=== PATIENT | male | born 1990 | race Caucasian/White ===

== ENCOUNTER 2017-03-31 07:01 | Emergency (ER) | payer OTHER ==
--- NOTE | ~2017-03-31 | CR7 ---
[facility] A Service of [facility] RADIOLOGY TEXT RESULTS PATIENT: GABINO CAMARA JR LOCATION: SED : 89 UNIT #: [id number] AGE: [address]: Derek Sutton MD SEX: M ORDER DR: [id number] [address] [id number] [id number] MR#: [id number] Acc #: [id number] NAME: GABINO CAMARA : 1990 SEX: M STUDY DATE/TIME: 03/31/2017 7:54 UNIT: SED ROOM: STUDY DESCRIPTION: CR Abdomen Single AP View Attending Physician: Derek Sutton M.D. Ordering Physician: Derek Sutton M.D. MEDICAL IMAGING REPORT This report is preliminary unless electronic signature is present. EXAM Abdomen 03/31/2017 HISTORY 26-year-old male with right flank pain and hematuria beginning last night. COMPARISON STUDIES CT abdomen and pelvis 12/18/2016. Abdomen x-rays 12/21/2016. FINDINGS 2 frontal supine views of the abdomen demonstrate two 1 cm radiopaque densities projecting over the right renal collecting system and right renal pelvis/proximal right ureter. Findings appear most consistent with the patient's known urinary tract calculi. Bowel gas pattern is non-obstructive. No acute bony abnormality. IMPRESSION Two 1 cm calcifications projecting over the right renal collecting system and right renal pelvis/proximal right ureter. Findings consistent with patient's known right-sided urinary tract calculi. An obstructing proximal right ureteral stone not excluded. Dictated by... Eric Gonzalez M.D. THIS IS AN ELECTRONICALLY VERIFIED REPORT Eric Gonzalez M.D. at 04/01/2017 6:21 AM NADINE/marie TD: 03/31/2017 09:42 [facility] A Service of [facility] RADIOLOGY TEXT RESULTS PATIENT: GABINO CAMARA JR LOCATION: SED : 89 UNIT #: [id number] AGE: [address]: Derek Sutton MD SEX: M ORDER DR: JOB #: [id number] MEDICAL IMAGING REPORT Page 1 of 1
[~2017-03-31 07:01] MED LIST: ABILIFY30 MG; FLEXERIL10 MG PO; GRALISE1 EACH; LORTAB 7.5-3251 EACH; ORUDIS75 M1 DOB; PHENERGAN25 M1 DOB; TRAMADOL HCL50 M1 PO; ZOFRAN
[2017-03-31 07:32] LABS: URINE APPEARANCE CLEAR; URINE BILIRUBIN NEG (NEG); URINE BLOOD 3+ (NEG); URINE COLOR YELLOW; URINE GLUCOSE NEG (NORM); URINE KETONE NEG (NEG); URINE LEUKOCYTE ESTERASE NEG (NEG); URINE NITRATE NEG (NEG); URINE PROTEIN TRACE (NEG); URINE SPECIFIC GRAVITY >=1.030 (1.003-1.035); URINE UROBILINOGEN 0.2 MG/DL (NORM)
[2017-03-31 07:38] LABS: MICRO INDICATED? YES; URINE SOURCE CLEAN CATCH
[2017-03-31 07:39] LABS: CULTURE INDICATED? NO; URINE BACTERIA NEG (NEG); URINE MUCUS PRESENT; URINE RBC 25-50 /[HPF] (0-2); URINE SQUAMOUS EPITHELIAL CELL FEW /[HPF]; URINE WBC 0-2 /[HPF] (0-5)
[2017-03-31 07:45] LABS: BASOPHIL# 0.1 X10e3 (0-0.3); BASOPHIL% 1.5 % (0-2.5); EOSINOPHIL# 0.6 X10e3 (0-0.7); EOSINOPHIL% 6.2 % (0.0-7.0); HEMATOCRIT 45.5 % (38.0-50.0); HEMOGLOBIN 16.1 gm/dL (13.0-16.0); LYMPHOCYTE# 2.3 X10e3 (1.0-3.5); LYMPHOCYTE% 23.5 % (17.0-45.0); MEAN CELL VOLUME 86.5 FL (83-96); MEAN CORPUSCULAR HEMOGLOBIN 30.6 PG (28-34); MEAN CORPUSCULAR HGB CONC 35.4 g/dL (30-36); MEAN PLATELET VOLUME 9.3 FL (6.5-11.5); MONOCYTE# 0.8 X10e3 (0-1.0); NEUTROPHIL% 60.8 % (40-75); PLATELET COUNT 227 X10e3 (140-420); RED BLOOD COUNT 5.27 X10e (3.90-5.60); RED CELL DISTRIBUTION WIDTH 13.3 % (11.0-15.5); WHITE BLOOD COUNT 9.9 X10e3 (4.0-10.5)
[2017-03-31 07:51] LABS: DIFF IND NO
[2017-03-31 08:04] LABS: ALBUMIN SERUM 4.6 g/dL (3.5-5.0); BILIRUBIN,TOTAL 0.8 mg/dL (0.2-2.0); CALCIUM SERUM 8.7 mg/dL (8.4-10.2); GLOM FILT RATE Estimated 102.7 mL/min (>60); POTASSIUM 3.5 mmol/L (3.5-5.1)
== END 2017-03-31 11:19 ==
LOC: SED 07:01
PROVIDERS: Emergency Medicine
DX: N20.1 Calculus of ureter (principal); F41.9 Anxiety disorder, unspecified; F17.210 Nicotine dependence, cigarettes, uncomplicated
CPT/HCPCS: 36415; 74000; 80053; 81003; 85025; 96361; 96374; 96375; 99285; J1170; J1885; J2405; J3360